=== PATIENT | male | born 1990 | race African-American/Black ===

== ENCOUNTER 2020-07-18 05:16 | Emergency (ER) | payer MEDICAID ==
[~2020-07-18] VITALS: Ht 180.3 cm; Wt 70.0 kg
[2020-07-18] MEDS ORDERED: KETOROLAC 60MG/2ML VIAL IM ONE (06:30)
[2020-07-18] MEDS ORDERED: IBUP-2029 MT (07:00)
[2020-07-18 07:10] VITALS: BP 119/79
== END 2020-07-18 07:38 | disposition home or self-care (01) ==
LOC: ER 05:16
DX: S60.455A Superficial foreign body of left ring finger, initial encounter (principal); X58.XXXA Exposure to other specified factors, initial encounter; Y93.89 Activity, other specified; Y92.9 Unspecified place or not applicable; Z88.0 Allergy status to penicillin
CPT/HCPCS: 99284

== ENCOUNTER 2021-05-29 21:02 | Emergency (ER) | payer MEDICAID ==
[~2021-05-29] VITALS: Ht 180.3 cm; Wt 73.0 kg
[~2021-05-29 21:02] MED LIST: IBUP-2029 MT
[2021-05-29] MEDS ORDERED: IBUPROFEN 400MG TABLET PO ONE (21:30)
[2021-05-29] MEDS ORDERED: TETRACAINE 0.5% OPHTH DROPS 4ML LEFTEYE ONE (21:30)
[2021-05-29] MEDS ORDERED: FLUORESCEIN SODIUM 1MG/STRIP LEFTEYE ONE (21:30)
[2021-05-29 21:38] VITALS: BP 119/73
[2021-05-29] MEDS ORDERED: HOMA5DRO8 LEFTEYE (22:50)
[2021-05-29] MEDS ORDERED: IBUP-2028 MT (22:50)
== END 2021-05-29 22:59 | disposition home or self-care (01) ==
LOC: ER 21:02
DX: S00.12XA Contusion of left eyelid and periocular area, initial encounter (principal); H20.9 Unspecified iridocyclitis; H57.12 Ocular pain, left eye; J45.909 Unspecified asthma, uncomplicated; F32.9 Major depressive disorder, single episode, unspecified; Y04.2XXA Assault by strike against or bumped into by another person, initial encounter; Y93.89 Activity, other specified; Y92.9 Unspecified place or not applicable; Z88.0 Allergy status to penicillin
CPT/HCPCS: 70480; 99284